=== PATIENT | female | born 1960 ===

== ENCOUNTER 2023-08-15 10:31 | Outpatient (CLI) | payer OTHER, SELFPAY ==
--- NOTE | 2023-08-15 10:45 | US_ITS ---
WS: [id number] THYROID ULTRASOUND HISTORY: Goiter COMPARISON: None available. Right lobe: 1.6 cm x 1.5 cm x 3.3 cm (w x ap x l). Volume: 4.0 cm3. Normal sized thyroid. Very heterogeneous lobular thyroid. There is no discrete mass. There is marked increased vascularity throughout the gland. Left lobe: 1.7 cm x 1.8 cm x 3.4 cm (w x ap x l). Volume: 5.1 cm3. Normal sized gland with heterogeneity and marked increased vascularity. There is no one discrete nodu le. Isthmus: 0.2 cm. IMPRESSION: 1. Heterogeneous nodular thyroid. No discrete well-defined nodules. 2. Marked hypervascularity throughout the gland which can be seen with acute thyroiditis/Ra's disease.
== END 2023-08-15 10:32 | disposition home or self-care (01) ==
LOC: RAD 10:31
PROVIDERS: PCP Family Medicine; Visit Provider Otolaryngology
DX: E05.00 Thyrotoxicosis with diffuse goiter without thyrotoxic crisis or storm (principal)
CPT/HCPCS: 76536